=== PATIENT | female | born 1980 | race African-American/Black ===

== ENCOUNTER 2018-01-28 18:54 | Emergency (ER) | payer OTHER ==
[2018-01-28 19:35] VITALS: BP 129/87; PULSE 72; TEMP 98.5; BMI 36.6
--- NOTE | 2018-01-28 21:10 | PDOC ---
History of Present Illness - General Chief Complaint: Wound Stated Complaint: PAIN Time Seen by Provider: 01/28/18 20:12 History Source: Patient Exam Limitations: Clinical Condition - History of Present Illness Initial Comments: 01/28/18 21:14 Patient with no sig Past medical history present with complain of drainage from umbilicus for 2 days. Denies and other symptoms. Patient reports she just finished antibiotics for foot infection 2 days ago. Patient reported laparoscopic surgery 2 years ago. Past History - Past Medical History Allergies/Adverse Reactions: Allergies Allergy/AdvReac Type Severity Reaction Status Date / Time Penicillins Allergy Hives Verified 01/28/18 19:25 Home Medications: Ambulatory Orders Mupirocin Ointment [Bactroban 2% Ointment -] 1 applic TP BID #1 tube 01/28/18 - Suicide/Smoking/Psychosocial Hx Smoking History: Never smoked Review of Systems - Review of Systems Able to Perform ROS?: Yes Is the patient limited Maur[place]ian proficient: No Constitutional: No: Chills, Diaphoresis, Fever, Loss of Appetite, Malaise, Night Sweats, Weakness, Weight Stable, Unintentional Wgt. Loss, Unexplained wgt Loss, Other HEENTM: No: Eye Pain, Blurred Vision, Tearing, Recent change in vision, Double Vision, Cataracts, Ear Pain, Ocular Prothesis, Ear Discharge, Nose Pain, Nose Congestion, Tinnitus, Nose Bleeding, Hearing Loss, Throat Pain, Throat Swelling , Mouth Pain, Dental Problems, Difficulty Swallowing, Mouth Swelling, Other Respiratory: No: Cough, Orthopnea, Shortness of Breath, SOB with Exertion, SOB at Rest, Stridor, Wheezing, Productive cough, Hemoptysis, Other Cardiac (ROS): No: Chest Pain, Edema, Irregular Heart Rate, Lightheadedness, Palpitations, Syncope, Chest Tightness, Other ABD/GI: No: Abdominal Distended, Abd. Pain w/ defecation, Blood Streaked Bowels , Constipated, Diarrhea, Difficulty Swallowing, Nausea, Poor Appetite, Poor Fluid Intake, Rectal Bleeding, Vomiting, Indigestion, Abdominal cramping, Tarry Stools, Other Musculoskeletal: Yes: See HPI, Muscle Pain (umbilicus) Integumentary: Yes: See HPI, Other (drainage from umbilicus) All Other Systems: Reviewed and Negative *Physical Exam - Vital Signs Last Vital Signs Temp Pulse Resp BP Pulse Ox 98.5 F 72 20 129/87 99 01/28/18 19:20 01/28/18 19:20 01/28/18 19:20 01/28/18 19:20 01/28/18 19:20 - Physical Exam Comments: 01/28/18 21:16 GENERAL: Well developed, well nourished. Awake and alert. No acute distress. HEENT: Normocephalic, atraumatic. PERRLA, EOMI. No conjunctival pallor. Sclera are non- icteric. Moist mucous membranes. Oropharynx is clear. NECK: Supple. Full ROM. No JVD. Carotid pulses 2+ and symmetric, without bruits. No thyromegaly. No lymphadenopathy. CARDIOVASCULAR: Regular rate and rhythm. No murmurs, rubs, or gallops. Distal pulses are 2+ and symmetric. PULMONARY: No evidence of respiratory distress. Lungs clear to auscultation bilaterally. No wheezing, rales or rhonchi. ABDOMINAL: Soft. Non-tender. Non-distended. No rebound or guarding. No organomegaly. Normoactive bowel sounds. MUSCULOSKELETAL Normal range of motion at all joints. No bony deformities or tenderness. No CVA tenderness. EXTREMITIES: No cyanosis. No clubbing. No edema. No calf tenderness. SKIN: Small amounts of clear drainage from umbilicus. Mild erythema inside umbilicus. No opening appreciated in umbilicus NEUROLOGICAL: Alert, awake, appropriate. Cranial nerves 2-12 intact. No deficits to light touch and temperature in face, upper extremities and lower extremities. No motor deficits in the in face, upper extremities and lower extremities. Normoreflexic in the upper and lower extremities. Normal speech. Toes are down- going bilaterally. Gait is normal without ataxia. PSYCHIATRIC: Cooperative. Good eye contact. Appropriate mood and affect. General Appearance: Yes: Nourished, Appropriately Dressed. No: Apparent Distress Medical Decision Making - Medical Decision Making 01/28/18 21:18 Patient with no sig Past medical history present with complain of drainage from umbilicus with no other symptoms. Exam shows small amount to clear drainage with mild erythema in umbilicus. Patient afebrile and with no other symptoms. Patient be discharged home on topical Bactroban with dermatology follow-up *DC/Admit/Observation/Transfer Diagnosis at time of Disposition: Open wound of umbilical region without complication Qualifiers: Encounter type: initial encounter Qualified Code(s): S31.105A - Unspecified open wound of abdominal wall, periumbilic region without penetration into peritoneal cavity, initial encounter - Discharge Dispostion Disposition: HOME Condition at time of disposition: Stable Decision to Admit order: No - Prescriptions Prescriptions: Mupirocin Ointment [Bactroban 2% Ointment -] 1 applic TP BID #1 tube - Referrals Referrals: Rian Peralta MD [Non Staff, Medical] - Hakeem Torres MD [Staff Physician] - - Patient Instructions Printed Discharge Instructions: DI for Wound Infection Additional Instructions: User prescribed topical antibiotics cream as prescribed on wound. follow up with referred manager biologics - Post Discharge Activity
== END 2018-01-28 21:43 | disposition home or self-care (01) ==
LOC: JERFT 18:54
DX: S31.105A Unspecified open wound of abdominal wall, periumbilic region without penetration into peritoneal cavity, initial encounter (principal); X58.XXXA Exposure to other specified factors, initial encounter; Y93.9 Activity, unspecified; Y92.89 Other specified places as the place of occurrence of the external cause; Y99.8 Other external cause status
CPT/HCPCS: 99281-25

== ENCOUNTER 2019-05-26 14:18 | Emergency (ER) | payer OTHER ==
[2019-05-26 14:29] VITALS: BP 121/66; PULSE 66; BMI 37.4
[2019-05-26] MEDS ORDERED: METHOCARBAMOL 500 MG TABLET PO ONE (15:59)
[2019-05-26] MEDS ORDERED: IBUPROFEN 400 MG TABLET (FP) PO ONE ×2 (15:59→16:27)
[2019-05-26] MEDS ORDERED: METHOCARBAMOL 500 MG TABLET ONE (16:27)
[2019-05-26] MEDS ORDERED: KETOROLAC TROMETHAMINE 30 MG/1 ML VIAL ONE (16:33)
[2019-05-26] MEDS ORDERED: KETOROLAC TROMETHAMINE 30 MG/1 ML VIAL IM ONE (16:35)
--- NOTE | 2019-05-26 16:46 | PDOC ---
History of Present Illness - General Chief Complaint: Injury Stated Complaint: FALL Time Seen by Provider: 05/26/19 15:22 History Source: Patient Exam Limitations: Clinical Condition - History of Present Illness Initial Comments: 05/26/19 16:59 Patient with no significant past medical history present with complaint of right hip and posterior thigh pain status post slip on ice and fall this morning. Patient reported increased pain when she move her right lower extremity which feels like stretching of the muscle. Denies hitting head or loss of consciousness. Patient did not take anything for pain. Denies any other symptoms Occurred: reports: this morning Past History - Past Medical History Allergies/Adverse Reactions: Allergies Allergy/AdvReac Type Severity Reaction Status Date / Time Penicillins Allergy Hives Verified 05/26/19 14:25 Home Medications: Ambulatory Orders Ibuprofen 800 mg PO Q8H PRN #20 tablet 05/26/19 Methocarbamol [Robaxin -] 500 mg PO BID #14 tablet 05/26/19 COPD: No - Surgical History Abdominal Surgery: (hernia repair) - Psycho Social/Smoking Cessation Hx Smoking History: Never smoked Review of Systems - Review of Systems Able to Perform ROS?: Yes Is the patient limited Polish proficient: No Constitutional: No: Fever, Malaise, Weakness HEENTM: No: Symptoms Reported Respiratory: No: Symptoms reported, See HPI, Cough, Orthopnea, Shortness of Breath, SOB with Exertion, SOB at Rest, Stridor, Wheezing, Productive cough, Hemoptysis, Other Cardiac (ROS): No: Symptoms Reported, See HPI, Chest Pain, Edema, Irregular Heart Rate, Lightheadedness, Palpitations, Syncope, Chest Tightness, Other ABD/GI: No: Symptoms Reported, Nausea, Vomiting Musculoskeletal: Yes: Symptoms Reported, See HPI, Back Pain, Muscle Pain (right thigh) Integumentary: No: Symptoms Reported, Bruising, Other All Other Systems: Reviewed and Negative *Physical Exam - Vital Signs Last Vital Signs Temp Pulse Resp BP Pulse Ox 66 18 121/66 99 05/26/19 14:26 05/26/19 14:26 05/26/19 14:26 05/26/19 14:26 - Physical Exam 05/26/19 16:42 GENERAL: Well developed, well nourished. Awake and alert in mild acute distress. CARDIOVASCULAR: Regular rate and rhythm. No murmurs, rubs, or gallops. PULMONARY: No evidence of respiratory distress. MUSCULOSKELETAL : mild tenderness over lateral side of right upper thigh which increases with abduction of right leg. No bony deformities SKIN: Warm and dry. Normal capillary refill. No bruises or ecchymosis. NEUROLOGICAL: Alert, awake, appropriate. No motor deficits in the lower extremities. Gait is normal without ataxia. PSYCHIATRIC: Cooperative. Good eye contact. Appropriate mood and affect. General Appearance: Yes: Nourished, Appropriately Dressed, Mild Distress ED Treatment Course - ADDITIONAL ORDERS Additional order review: Laboratory Results 05/26/19 16:15 Urine HCG, Qual Negative - RADIOLOGY Radiology Studies Ordered: Category Date Time Status FEMUR-RIGHT [RAD] Stat Radiology 05/26/19 16:00 Ordered HIP-RIGHT [RAD] Stat Radiology 05/26/19 15:59 Ordered - Medications Given in the ED: ED Medications Discontinued Medications Generic Name Dose Route Start Last Admin Trade Name Freq PRN Reason Stop Dose Admin Ketorolac Tromethamine 30 mg 05/26/19 16:35 05/26/19 16:37 Toradol Injection - IM 05/26/19 16:36 30 mg ONCE ONE Administration Methocarbamol 500 mg 05/26/19 15:59 05/26/19 16:37 Robaxin - PO 05/26/19 16:00 500 mg ONCE ONE Administration Medical Decision Making - Medical Decision Making 05/26/19 17:00 Patient with no significant past medical history present with complaint of right hip and posterior thigh pain status post slip on ice and fall this morning. Patient reported increased pain when she move her right lower extremity which feels like stretching of the muscle. Denies hitting head or loss of consciousness. Patient did not take anything for pain. Denies any other symptoms Exam significant for mild tenderness to lateral aspect of right hip and right lateral thigh muscle which is worse when abduction of right lower extremity. No visible bruising or ecchymosis. Symptoms likely hip and thigh contusion versus less likely fracture. Toradol 30 mg IM and Robaxin 500 mg p.o. ordered for pain and spasm. Urine test ordered and right hip and femur x-ray to be ordered after negative urine 05/26/19 17:31 X-ray of right thigh and hip shows no acute fracture or dislocation. Patient symptoms likely hip contusion with thigh strain. Patient report improvement in pain with Toradol and Robaxin. Patient stable for discharge on ibuprofen as needed for pain and Robaxin for spasm with orthopedics follow-up Discharge - Discharge Information Problems reviewed: Yes Clinical Impression/Diagnosis: Right hip pain Fall Qualifiers: Encounter type: initial encounter Qualified Code(s): W19.XXXA - Unspecified fall, initial encounter Condition: Stable Disposition: HOME - Admission No - Additional Discharge Information Prescriptions: Ibuprofen 800 mg PO Q8H PRN #20 tablet PRN Reason: pain Methocarbamol [Robaxin -] 500 mg PO BID #14 tablet - Follow up/Referral Referrals: Martin Higgins DO [Staff Physician] - - Patient Discharge Instructions Patient Printed Discharge Instructions: DI for Contusion, DI for Hip Pain Additional Instructions: X-ray of right pelvis and hip shows no acute fracture or dislocation. Your pain is likely from hip contusion. Take prescribed medication as needed for pain and spasm. Apply hot compress to hip and thigh area as needed for pain. Follow-up referred to orthopedics if no improvement in 3 days - Post Discharge Activity Work/Back to School Note: Back to Work
== END 2019-05-26 17:45 | disposition home or self-care (01) ==
LOC: JERFT 14:18
PROC: 3E0233Z Introduction of Anti-inflammatory into Muscle, Percutaneous Approach (ICD-10-PCS; principal; 2019-05-26)
DX: S76.811A Strain of other specified muscles, fascia and tendons at thigh level, right thigh, initial encounter (principal); W00.2XXA Other fall from one level to another due to ice and snow, initial encounter; Y93.89 Activity, other specified; Y92.89 Other specified places as the place of occurrence of the external cause; Y99.8 Other external cause status; S70.01XA Contusion of right hip, initial encounter; Z88.0 Allergy status to penicillin
CPT/HCPCS: 73502-TC-RT-FY; 73552-TC-RT-FY; 84703; 99281-25

== ENCOUNTER 2024-02-04 13:21 | Emergency (ER) | payer OTHER ==
[2024-02-04 13:30] VITALS: BP 126/88; PULSE 78; RESP 18; TEMP 98.9; BMI 39.1
[2024-02-04 14:44] LABS: BASO % 0.5 % (0-2.0); EOS % 0.7 % (0-4.5); HEMATOCRIT 40.8 % (32.4-45.2); HEMOGLOBIN 13.5 GM/dL (10.7-15.3); LYMPH % 25.9 % (8-40); MCH 29.9 pg (25.7-33.7); MEAN CELL VOLUME 90.4 fl (80-96); MEAN PLT VOLUME 10.1 fl (7.5-11.1); MONO % 11.5 % (3.8-10.2); NEUT % 61.4 % (42.8-82.8); PLATELET COUNT 259 10^3/uL (134-434); RBC 4.52 M/mm3 (3.60-5.2); RDW 13.9 % (11.6-15.6); WHITE BLOOD COUNT 7.3 K/mm3 (4.0-10.0)
[2024-02-04 15:02] LABS: POTASSIUM 4.1 mmol/L (3.5-5.1)
[2024-02-04 15:04] LABS: CALCIUM 9.6 mg/dL (8.5-10.1)
[2024-02-04 15:05] LABS: ALBUMIN 4.3 g/dl (3.4-5.0)
[2024-02-04 15:08] LABS: CREATININE 0.7 mg/dL (0.55-1.3)
[2024-02-04 15:09] LABS: BILIRUBIN,TOTAL 0.8 mg/dL (0.2-1)
[2024-02-04 15:10] LABS: TOT PROT 7.5 g/dl (6.4-8.2)
[2024-02-04 15:11] LABS: PH,URINE 5.5 (5.0-8.0); URINE APPEARANCE CLEAR; URINE BILIRUBIN NEGATIVE (NEGATIVE); URINE COLOR DK YELLOW; URINE GLUCOSE (UA) NEGATIVE (NEGATIVE); URINE KETONE TRACE (NEGATIVE); URINE LEUK ESTERASE NEGATIVE (NEGATIVE); URINE NITRITE NEGATIVE (NEGATIVE); URINE PROTEIN NEGATIVE (NEGATIVE); URINE UROBILINOGEN 0.2 mg/dL (0.2-1.0)
[2024-02-04 18:04] LABS: HIV INTERPRETATION NEGATIVE (NEGATIVE)
== END 2024-02-04 17:58 | disposition home or self-care (01) ==
LOC: JER 13:21
DX: K62.5 Hemorrhage of anus and rectum (principal); R10.32 Left lower quadrant pain; R10.31 Right lower quadrant pain
CPT/HCPCS: 36415; 74177-TC; 80053; 81003; 83605; 84703; 85025; 86803; 86850; 86900; 86901; 87086; 87389; 99285-25; Q9967